=== PATIENT | male | born 1965 | race Caucasian/White ===

== ENCOUNTER 2017-11-17 16:46 | Emergency (ER) | payer BC ==
[2017-11-17] MEDS ORDERED: Diphtheria,Pertussis(Acell),Tetanus Vaccine 0.5 ML SDV IM ONE (18:03)
[2017-11-17] MEDS ORDERED: Bacitracin Oint 1 GM U/D Packet TOP ONE (18:04)
--- NOTE | 2017-11-17 18:09 | EDM.PDOC ---
ED HPI GENERAL MEDICAL PROBLEM - General Chief Complaint: Laceration Stated Complaint: CUT RT HAND INDEX FINGER Time Seen by Provider: 11/17/17 18:00 Source of Information: Reports: Patient History Limitations: Reports: No Limitations - History of Present Illness INITIAL COMMENTS - FREE TEXT/NARRATIVE: 52 yo male lacerated his R index finger while putting a chain on his 4 silvestre. Here for repair. 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: Reports: Other (see below) (none) - Related Data Allergies Allergy/AdvReac Type Severity Reaction Status Date / Time No Known Allergies Allergy Verified 11/17/17 17:06 Home Meds: Home Meds Levothyroxine 11/17/17 [History] Simvastatin [Zocor] 11/17/17 [History] Past Medical History Cardiovascular History: Reports: Hypertension - Past Surgical History GI Surgical History: Reports: Appendectomy Social & Family History - Tobacco Use Smoking Status *Q: Never Smoker ED ROS GENERAL - Review of Systems Review Of Systems: See Below Constitutional: Reports: No Symptoms Musculoskeletal: Reports: No Symptoms Skin: Reports: Wound Neurological: Reports: No Symptoms ED EXAM, SKIN/RASH Exam: See Below Exam Limited By: No Limitations General Appearance: Alert, WD/WN, No Apparent Distress Eye Exam: Bilateral Eye: Normal Inspection Extremities: Normal Range of Motion, Other (no weakness) Neurological: Alert, Oriented, CN II-XII Intact, Normal Cognition, No Motor/ Sensory Deficits Psychiatric: Normal Affect, Normal Mood Skin: Warm, Dry, Normal Color, No Rash, Wound/Incision (2.5 cm candy cane shaped laceration to the R index extending from the PIP joint to the MC joint on the medial side of the finger.) Location, Skin: Upper Extremity, Right Characteristics: Other (irregular) Lymphatic: No Adenopathy ED SKIN PROCEDURES - Laceration/Wound Repair Right Medial Proximal Finger Lac/Wound length In cm: 2.5 Appearance: Subcutaneous Distal NVT: Neuro & Vascular Intact Anesthetic Type: Local Local Anesthesia - Lidocaine (Xylocaine): 1% Plain Local Anesthetic Volume: 5cc Skin Prep: Saline Exploration/Debridement/Repair: Wound Explored, No Foreign Material Found Closed with: Sutures Suture Size: other (5-0) # of Sutures: 8 Suture Type: Nylon Drain Placement: No Sterile Dressing Applied: Nurse Tetanus Status Addressed: Yes Complications: No Course - Vital Signs Last Recorded V/S: Last Vital Signs Temp 36.4 C 11/17/17 17:12 Pulse 58 L 11/17/17 17:12 Resp 14 11/17/17 17:12 BP 148/87 H 11/17/17 17:12 Pulse Ox 98 11/17/17 17:12 - Orders/Labs/Meds Orders: Active Orders 24 hr Category Date Time Status Vaccines to be Administered [RC] PER UNIT ROUTINE Care 11/17/17 18:04 Ordered Bacitracin [Bacitracin Oint 1 GM] Med 11/17/17 18:04 Once 1 dose TOP ONETIME ONE Diphth,Pertuss(Acell),Tet Vac [Adacel] Med 11/17/17 18:03 Once 0.5 ml IM .ONCE ONE Lidocaine 1% [Xylocaine-MPF 1%] Med 11/17/17 18:04 Once 5 ml INJECT ONETIME ONE Departure - Departure Time of Disposition: 18:35 Disposition: Home, Self-Care 01 Condition: Good Clinical Impression: Finger laceration Qualifiers: Encounter type: initial encounter Finger: index finger Damage to nail status: without damage Foreign body presence: without foreign body Laterality: right Qualified Code(s): S61.210A - Laceration without foreign body of right index finger without damage to nail, initial encounter - Discharge Information Referrals: PCP,None [Primary Care Provider] - - My Orders Last 24 Hours: My Active Orders 11/17/17 18:03 Diphth,Pertuss(Acell),Tet Vac [Adacel] 0.5 ml IM .ONCE ONE 11/17/17 18:04 Vaccines to be Administered [RC] PER UNIT ROUTINE Bacitracin [Bacitracin Oint 1 GM] 1 dose TOP ONETIME ONE Lidocaine 1% [Xylocaine-MPF 1%] 5 ml INJECT ONETIME ONE - Assessment/Plan Last 24 Hours: My Active Orders 11/17/17 18:03 Diphth,Pertuss(Acell),Tet Vac [Adacel] 0.5 ml IM .ONCE ONE 11/17/17 18:04 Vaccines to be Administered [RC] PER UNIT ROUTINE Bacitracin [Bacitracin Oint 1 GM] 1 dose TOP ONETIME ONE Lidocaine 1% [Xylocaine-MPF 1%] 5 ml INJECT ONETIME ONE
== END 2017-11-17 18:37 | disposition home or self-care (01) ==
LOC: JP.ED 16:46
DX: S61.210A Laceration without foreign body of right index finger without damage to nail, initial encounter (principal); W22.8XXA Striking against or struck by other objects, initial encounter; Z23 Encounter for immunization
CPT/HCPCS: 12001; 90471; 90715; 99283-25

== ENCOUNTER 2023-08-30 11:32 | Emergency (ER) | payer BC, OTHER ==
[2023-08-30 13:02] LABS: LYME AB IgG Negative (Negative); LYME AB IgM Negative (Negative)
== END 2023-08-30 13:35 | disposition home or self-care (01) ==
LOC: JP.ED 11:32
DX: T14.8XXA Other injury of unspecified body region, initial encounter (principal); I10 Essential (primary) hypertension; E78.00 Pure hypercholesterolemia, unspecified; Z79.899 Other long term (current) drug therapy; Z20.822 Contact with and (suspected) exposure to COVID-19; W57.XXXA Bitten or stung by nonvenomous insect and other nonvenomous arthropods, initial encounter
CPT/HCPCS: 36415; 86618; 99283; U0002